=== PATIENT | female | born 1985 | race Caucasian/White ===

== ENCOUNTER 2019-05-30 15:54 | Inpatient (IN) | payer MEDICAID ==
[2019-05-30] MEDS ORDERED: NALOXONE 0.4 MG/1 ML INJ IV PRN (16:00)
[2019-05-30] MEDS ORDERED: fentaNYL 100 MCG/2 ML INJ IV PRN (16:00)
[2019-05-30] MEDS ORDERED: TERBUTALINE 1 MG/1 ML INJ SUB-Q PRN (16:00)
[2019-05-30] MEDS ORDERED: TERBUTALINE 1 MG/1 ML INJ IVP PRN (16:00)
[2019-05-30] MEDS ORDERED: MINERAL OIL 30 ML ORAL LIQD PO PRN (16:00)
[2019-05-30] MEDS ORDERED: PROMETHAZINE 25 MG TAB PO PRN ×2 (16:00→16:58)
[2019-05-30] MEDS ORDERED: ePHEDrine SULFATE 50 MG/1 ML INJ IV PRN (16:00)
[2019-05-30] MEDS ORDERED: BUTORPHANOL 2 MG/1 ML INJ IV PRN (16:00)
[2019-05-30] MEDS ORDERED: ONDANSETRON 4 MG/2 ML INJ IV PRN ×2 (16:00→16:58)
[2019-05-30] MEDS ORDERED: LACTATED RINGERS 1,000 ML IV SCH (16:00)
[2019-05-30 16:43] LABS: Hematocrit 38.9 % (30.3-42.9); Hemoglobin 13.1 gm/dl (10.1-14.3); Mean Corpuscular HGB Conc 34 % (30-34); Mean Corpuscular Volume 90 fl (79-97); Platelet Count 253 K/mm3 (140-440); Red Blood Count 4.31 M/mm3 (3.65-5.03); Red Cell Distribution Width 13.9 % (13.2-15.2)
[2019-05-30] MEDS: OXYTOCIN 20 UNIT/1000ML DRIP 20 UNITS/1,000 ML BAG IV SCH ×2 (16:52→18:19)
[2019-05-30] MEDS ORDERED: WITCH HAZEL/ GLYCERIN PAD TP PRN (16:58)
[2019-05-30] MEDS ORDERED: diphenhydrAMINE 25 MG CAP PO PRN (16:58)
[2019-05-30] MEDS ORDERED: MAGNESIUM HYDROXIDE (MOM) ORAL LIQD UDC PO PRN (16:58)
[2019-05-30] MEDS ORDERED: LANOLIN/ZINC/DIMETHICONE (LANSINOH) 7 GM TP PRN (16:58)
[2019-05-30] MEDS ORDERED: PROMETHAZINE 25 MG RECT SUPP PR PRN (16:58)
[2019-05-30] MEDS ORDERED: ACETAMINOPHEN 325 MG TAB PO PRN (16:58)
[2019-05-30] MEDS ORDERED: miSOPROStol 100 MCG TAB PR PRN (16:58)
[2019-05-30] MEDS ORDERED: LIDOCAINE (2%) 20 MG/1 ML VIAL 20 ML MDV INFILTRATI ONE (17:00)
--- NOTE | 2019-05-30 17:06 | History and Physical Report ---
History of Present Illness Date of examination: 05/30/19 Date of admission: 05/30/19 16:14 Chief complaint: Contractions History of present illness: The patient is a 33 yo at 37.5 weeks EGA who presents with regular uterine contractions. She denies LOF, reports bloody show and positive movement. She has received care with [facility] since the late second trimester. Her has been uncomplicated. 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 She is GBS negative. 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: herpes (HSV-2 seropositive) Family/Genetic History: none Social history: no significant social history - Obstetrical History Expected Date of Delivery: 06/15/19 Actual Gestation: 37 Week(s) 5 Day(s) : 4 Para: 3 Hx # Term Pregnancies: 3 Number of Living Children: 3 Medications and Allergies Allergies Allergy/AdvReac Type Severity Reaction Status Date / Time No Known Allergies Allergy Verified 01/28/16 12:44 Home Medications Medication Instructions Recorded Confirmed Last Taken Type Cyclobenzaprine [Flexeril] 10 mg PO TID PRN #12 tablet 01/28/16 Unknown Rx methylPREDNISolone [Medrol Dose 4 mg PO DAILY #1 pack 01/28/16 Unknown Rx [place]] traMADol [Ultram] 50 mg PO Q6HR PRN #12 tablet 01/28/16 Unknown Rx Ibuprofen [Motrin] 600 mg PO Q8H PRN #30 tablet 11/01/16 Unknown Rx medroxyPROGESTERone ACETATE 10 mg PO QDAY #10 tablet 11/01/16 Unknown Rx [Provera] metroNIDAZOLE [Flagyl] 500 mg PO Q12HR #14 tab 11/01/16 Unknown Rx Active Meds: Active Medications Acetaminophen (Tylenol) 650 mg PO Q4H PRN PRN Reason: Pain MILD(1-3)/Fever >100.5/STEVENS Bisacodyl (Dulcolax) 10 mg MD BID PRN PRN Reason: Constipation Butorphanol Tartrate (Stadol) 2 mg IV Q2H PRN PRN Reason: Pain , Severe (7-10) Diphenhydramine HCl (Benadryl) 25 mg PO Q6H PRN PRN Reason: Itching Diphtheria/Tetanus/Acell Pertussis (Boostrix) 0.5 ml IM .ONCE ONE Stop: 05/31/19 16:59 Ephedrine Sulfate (Ephedrine Sulfate) 10 mg IV Q2M PRN PRN Reason: Hypotension Fentanyl (Sublimaze) 100 mcg IV Q2H PRN PRN Reason: Labor Pain Oxytocin/Sodium Chloride (Pitocin/Ns 20 Unit/1000ml Drip) 20 units in 1,000 mls @ 125 mls/hr IV DIRECT TAMERA Lactated Ringer's (Lactated Ringers) 1,000 mls @ 125 mls/hr IV DIRECT TAMERA Ibuprofen (Ibuprofen) 600 mg PO Q6H TAMERA Magnesium Hydroxide (Milk Of Magnesia) 30 ml PO HS PRN PRN Reason: Constipation Mineral Oil (Mineral Oil) 30 ml PO QHS PRN PRN Reason: Constipation Misoprostol (Cytotec) 800 mcg MD ONCE PRN PRN Reason: Uterine Bleeding Multi-Ingredient Ointment (Lansinoh) 1 applic TP PRN PRN PRN Reason: Sore Nipples Naloxone HCl (Narcan 0.4 Mg/1 Ml) 0.1 mg IV Q2MIN PRN PRN Reason: Res Rate </= 8 or 02 SAT < 92% Ondansetron HCl (Zofran) 4 mg IV Q8H PRN PRN Reason: Nausea And Vomiting Ondansetron HCl (Zofran) 4 mg IV Q8H PRN PRN Reason: Nausea And Vomiting Promethazine HCl (Phenergan) 25 mg PO Q6H PRN PRN Reason: Nausea And Vomiting Promethazine HCl (Phenergan) 25 mg MD Q6H PRN PRN Reason: Nausea And Vomiting Promethazine HCl (Phenergan) 25 mg PO Q6H PRN PRN Reason: Nausea And Vomiting Sodium Chloride (Sodium Chloride Flush Syringe 10 Ml) 10 ml IV PRN NR Terbutaline Sulfate (Brethine) 0.25 mg SUB-Q ONCE PRN PRN Reason: Hyperstimulation/Hypertonicity Terbutaline Sulfate (Brethine) 0.25 mg IVP ONCE PRN PRN Reason: Hyperstimulation/Hypertonicity Witch Veronica/Glycerin (Tucks Pad) 1 each TP PRN PRN PRN Reason: Hemorrhoid/cleansing/soothing Review of Systems All systems: negative Genitourinary: vaginal bleeding (spotting), vaginal discharge, contractions, no leakage of fluid - Physical Exam Lungs: Positive: Normal air movement Vagina: Positive: normal moisture Uterus: Positive: normal contour Extremities: Positive: normal - Obstetrical FHR: category 1 Uterine Contraction Monitor Mode: External Results Result Diagrams: 05/30/19 16:26 All other labs normal. Assessment and Plan 33 yo at 37.5 weeks EGA in active labor GBS negative Admit to L&D Pain relief as requested Expectant management Anticipate
--- NOTE | 2019-05-30 17:15 | Procedure Note ---
OB Delivery Note - Delivery Date of Delivery: 05/30/19 Surgeon: CAITLYN GOMEZ (Zonia Howell CNM en route) Estimated blood loss: 300cc - Vaginal Delivery presentation: vertex Delivery position: OA Intrapartum events: meconium Delivery induction: none Delivery monitor: external FHT, external uterine Route of delivery: Delivery placenta: spontaneous Delivery cord: 3 umbilical vessels Episiotomy: none Delivery laceration: none Anesthesia: none Delivery comments: Pt rapidly progressed to complete dilation and spontaneous pushing. This CNM en route. Caitlyn Gomez CNM attended delivery. Head delivered OA, shoulders followed easily. Vigorous infant to maternal abdomen. Meconium-stained fluid noted. Placenta delivered spontaneously and intact. No lacerations noted. EBL 300cc. Mother and bonding. - Infant A at 1 minute: 8 at 5 minutes: 9 Gender: Female (5lb 1oz)
[2019-05-30] MEDS: IBUPROFEN 600 MG TAB PO SCH ×2 (17:37→23:00)
[2019-05-30] MEDS: FERROUS SULFATE 325 MG TAB PO SCH (21:35)
[2019-05-31 06:31] LABS: Hematocrit 33.6 % (30.3-42.9); Hemoglobin 11.4 gm/dl (10.1-14.3)
[2019-05-31] MEDS: FERROUS SULFATE 325 MG TAB PO SCH ×2 (08:58→23:44)
[2019-05-31] MEDS: IBUPROFEN 600 MG TAB PO SCH ×2 (08:59→23:47)
--- NOTE | 2019-05-31 11:19 | Progress Note ---
Assessment and Plan PPD1 s/p Vital signs and labs stable Needs breast feeding education Discharge to home tomorrow Subjective - Subjective Date of service: 05/31/19 Principal diagnosis: s/p Interval history: PPD1 s/p Patient reports: appetite normal, voiding normally, pain well controlled, ambulating normally [place]: doing well, bottle feeding (wants to breast feed, needs more coaching) Objective - Vital Signs Latest vital signs: Vital Signs Temp Pulse Resp BP Pulse Ox 05/31/19 08:29 97.9 F 56 L 18 115/71 99 05/31/19 04:49 98.2 F 60 20 102/63 100 05/31/19 00:03 98.2 F 63 20 99/50 97 05/30/19 18:10 93 H 130/74 05/30/19 17:09 98.7 F 16 Intake and Output 05/30/19 05/31/19 05/31/19 23:59 07:59 15:59 Intake Total 181.25 120 Output Total 200 600 Balance -18.75 -480 Intake: IV 181.25 PITOCin/NS 20 UNIT/1000ML 181.25 DRIP 20 units In 1,000 ml @ 125 mls/hr IV DIRECT TAMERA Rx#:[id number] Oral 120 Output: Urine 200 600 Void 200 600 Other: Total, Intake Amount 120 Total, Output Amount 200 300 # Voids Void 2 Weight 136 lb Estimated Blood Loss 300 - Exam Lungs: Present: Normal air movement Abdomen: Present: normal appearance, soft Uterus: Present: normal, firm, fundal height below umbilicus Extremities: Present: normal
--- NOTE | 2019-05-31 11:21 | Discharge Summary ---
Providers - Providers Date of Admission: 05/30/19 16:14 Date of discharge: 06/01/19 Attending physician: CICI GARCÍA Primary care physician: ADMINISTRATIVE HEARING OFFICER Hospitalization Reason for admission: active labor Delivery: Episiotomy: none Laceration: none Other procedures: none complications: none Discharge diagnosis: IUP at term delivered [place] baby: female Hospital course: Pt presented in active labor and rapidly progressed to of vigorous infant. She met discharge criteria on PPD1. Condition at discharge: Good Disposition: DC-01 TO HOME OR SELFCARE Plan - Discharge Medications Prescriptions: Ibuprofen [Motrin] 800 mg PO Q8HR PRN #30 tablet PRN Reason: Pain, Moderate (4-6) HYDROcodone/APAP 5-325 [[place] 5/325] 1 each PO Q6HR PRN #20 tablet PRN Reason: Pain - Provider Discharge Summary Activity: routine, no sex for 6 weeks, no heavy lifting 4 weeks, no strenuous exercise Diet: routine Instructions: routine Additional instructions: [] Smoking cessation referral if applicable(refer to patient education folder for contact #) [] Refer to [facility] Booklet Call your doctor immediately for: * Fever > 100.5 * Heavy vaginal bleeding ( >1 pad per hour) * Severe persistent headache * Shortness of breath * Reddened, hot, painful area to leg or breast * Drainage or odor from incision. * Keep incision clean and dry at all times and follow doctor's instructions regarding bathing/showering - Follow up plan Follow up: DAWIT ARTEAGA CNM [Advanced Practice Nurse] - 6 Weeks (Please call [facility] to schedule appointment.)
[2019-05-31] MEDS ORDERED: TETANUS,DIPH,PERTUSS(ACELL) VACCINE 0.5 ML SYRINGE IM ONE (16:58)
[2019-06-01] MEDS: FERROUS SULFATE 325 MG TAB PO SCH (10:12)
[2019-06-01] MEDS: IBUPROFEN 600 MG TAB PO SCH ×2 (12:24→18:00)
[2019-06-01 16:53] VITALS: BP 120/69
== END 2019-06-01 19:33 | disposition home or self-care (01) | DRG 775 ==
LOC: TRG 15:54 → LD 16:14 → OB 19:39
PROVIDERS: ADMIT Obstetrics & Gynecology; ATTEND Obstetrics & Gynecology
PROC: 10E0XZZ Delivery of Products of Conception, External Approach (ICD-10-PCS; principal; 2019-05-30)
PROC: 3E0234Z Introduction of Serum, Toxoid and Vaccine into Muscle, Percutaneous Approach (ICD-10-PCS; 2019-05-31)
DX: O77.0 Labor and delivery complicated by meconium in amniotic fluid (principal); Z3A.37 37 weeks gestation of pregnancy; Z37.0 Single live birth; Z23 Encounter for immunization; Z79.899 Other long term (current) drug therapy
CPT/HCPCS: 36415; 85014; 85018; 85027; 86592; 86850; 86900; 86901; 88307; G0378; J2590